=== PATIENT | female | born 1980 ===

== ENCOUNTER 2017-05-13 15:48 | Inpatient (IN) | payer MEDICAID ==
[2017-05-13 16:24] VITALS: BMI 30.7
[2017-05-13] MEDS ORDERED: Lactated Ringer's 1,000 ML IV SCH (16:30)
[2017-05-13] MEDS ORDERED: Penicillin G 5 Million Unit Vial IVPB ONE (16:58)
[2017-05-13] MEDS ORDERED: Lidocaine 1% Inj (20ml) ONE (16:58)
[2017-05-13] MEDS ORDERED: Fentanyl/Bupivacaine HCl 0 ML EPI ONE (17:15)
[2017-05-13 17:21] LABS: BASO # 0.1 K/uL (0.0-0.2); BASO % 0.4 % (0.0-2.0); EOS # 0.1 K/uL (0.0-0.7); EOS % 0.7 % (0.0-4.0); HEMOGLOBIN 14.6 g/dL (12.0-16.0); LYMPH # 2.1 K/uL (1.0-4.3); LYMPH % 16.8 % (20.0-40.0); MEAN CELL VOLUME 91.7 fl (81.0-99.0); MEAN CORPUSCULAR HEMOGLOBIN 30.8 pg (27.0-31.0); MEAN CORPUSCULAR HGB CONC 33.6 g/dL (33.0-37.0); MEAN PLATELET VOLUME 9.8 fl (7.2-11.7); MONO # 0.8 K/uL (0.0-0.8); MONO % 6.1 % (0.0-10.0); NEUT # 9.5 K/uL (1.8-7.0); RBC 4.73 Mil/uL (3.80-5.20); RED CELL DISTRIBUTION WIDTH 13.5 % (11.5-14.5); WHITE BLOOD COUNT 12.5 K/uL (4.8-10.8)
[2017-05-13] MEDS ORDERED: Oxytocin 30 UNITS in Sodium Chloride 0.9% 500 ML IV ONE (17:21)
--- NOTE | 2017-05-13 17:24 | OBHP ---
Datetime: 05/13/2017 16:15 IP Adm Impression: Term, intrauterine ; Intact Membranes IP Admit Plan: Admit to unit; Initiate labor protocol Admit Comment, IP Provider: IUP at 40 acc to pt dates. c/o CTX pain since ealry this aftern oon. No SROM. no VB. +FM...pain is enough for wanting epidural. PNC: [facility] last appt 2w ago. she missed last appt on friday because she couldn't walk (undocumented) PMH: denies PSH: cholecystectomy [facility] denies smoking ETOH drugs - lives with (who accomapnied her) and kids (accompanied by 15yo daughter) POBGYNH: Denies STD; 5 / spont Ab x 1 A: IUP at 40w / early labor ./ painful CTX / grand multiparity PLAN: admit to L_D Discussion about condition, labor, delivery, and pain management Notified by [facility] that she was GBS+ will give PCN Extremities - PN: Normal Abdomen - PN: Normal Back - PN: Normal Lungs - PN: Normal Heart - PN: Normal Thyroid - PN: Normal Neurologic - PN: Normal HEENT - PN: Normal General - PN: Normal Presentation-Admit: Vertex IP Fetus A Comments: sono ceph FHR - Baseline A Provider: 130 Membranes, Provider: Intact Contraction Comments Provider: + Pool Provider: Negative EGA AdmitDate IP: 40.3 IP Chief Complaint: Uterine contractions NICHD Variability Prov Fetus A: Moderate 6-25bpm NICHD Accel Fetus A IP Provider: [id number] FHR Category Provider Fetus A: Category I NICHD Decel Fetus A IP Provider: None Dilatation, Provider: 3-4 Effacement, Provider: 75 Station, Provider: -2 Genitourinary Exam: Normal
[2017-05-13] MEDS: Oxycodone/Acetaminophen 5/325 mg Tab PO PRN (18:24)
--- NOTE | 2017-05-13 18:52 | OBDS ---
DELIVERY PERSONNEL Delivery Doctor: Alfonso Manley DO Agriculturist: /VMLozaRNCMLamelaRNC/W GrimmRN MATERNAL INFORMATION Delivery Anesthesia: None Medications in Delivery: Pitocin 30 units in 0.9NS Estimated Blood Loss (ml): 200 Placenta Cultured: Yes Maternal Complications: None Provider Comments: Over intact perineum, of infant from cephalic presentation. One loose nucha l cord noted and reduced. Infant was crying spontaneously and bulb suctioned nasopharygeally. Infan t was placed on her chest for [id number]. Placenta was deliveed intact spontaneously. EBL 200cc. She remained stable LABOR SUMMARY EDC: 05/10/2017 00:00 No. Babies in Womb: 1 Attempted: No Labor Anesthesia: None LABOR INFORMATION Reason for Induction: Not Applicable Onset of Labor: 05/13/2017 14:00 Complete Dilatation: 05/13/2017 17:45 Oxytocin: N/A Group B Beta Strep: Positive Antibiotics # of Doses: Pen G 5 miiliom units x1 Antibiotics Time of Last Dose: 1700 Steroids Given: None Reason Steroids Not Administered: Not Applicable MEMBRANES Membranes Rupture Method: Spontaneous Rupture of Membranes: 05/13/2017 17:45 Length of Rupture (hrs): 0.07 Amniotic Fluid Color: Clear Amniotic Fluid Amount: Large Amniotic Fluid Odor: Normal STAGES OF LABOR Stage 1 hrs: 3 Stage 1 min: 45 Stage 2 hrs: 0 Stage 2 min: 4 Stage 3 hrs: 0 Stage 3 min: 5 Total Time in Labor hrs: 3 Total Time in Labor min: 54 VAGINAL DELIVERY Episiotomy: None Laceration Extension: N/A Laceration Type: None Laceration Repair: Not Applicable Initial Vag Sponge Count: n/a Final Vag Sponge Count: n/a Initial Vag Sharps Count: n/a Final Vag Sharps Count: n/a Sponge Count Correct: N/A BABY A INFORMATION Infant Delivery Date/Time: 05/13/2017 17:49 Method of Delivery: Vaginal Born in Route : No : N/A Forceps: N/A Vacuum Extraction: N/A Shoulder Dystocia : No SHOULDER DYSTOCIA BABY A Infant Delivery Date/Time: 05/13/2017 17:49 PRESENTATION/POSITION BABY A Presentation: Cephalic Cephalic Presentation: Vertex Breech Presentation: N/A PLACENTA INFORMATION BABY A Placenta Delivery Time : 05/13/2017 17:54 Placenta Method of Delivery: Spontaneous Placenta Status: Delivered SCORES BABY A Heart Rate 1 min: >100 bpm Resp Effort 1 min: Good Cry Reflex Irritability 1 min: Cough or Sneeze or Pulls Away Muscle Tone 1 min: Active Motion Color 1 min: Body [place], Extremities Blue Resuscitation Effort 1 min: Tactile Stimulation SCORE 1 MIN: 9 Heart Rate 5 min: >100 bpm Resp Effort 5 min: Good Cry Reflex Irritability 5 min: Cough or Sneeze or Pulls Away Muscle Tone 5 min: Active Motion Color 5 min: Body [place], Extremities Blue Resuscitation Effort 5 min: N/A SCORE 5 MIN: 9 INFORMATION BABY A Gestational Age at Delivery: 40.3 Gestational Status: Post-term Infant Outcome : Liveborn Condition : Stable Infant Sex: Female IDENTIFICATION/MEDS BABY A ID Band Number: [id number] ID Band Location: Left Leg; Left Arm Vitamin K Given : Not Given Erythromycin Given: Not Given WEIGHT/LENGTH BABY A Infant Birthweight (gms): 3070 Infant Weight (lb): 6 Infant Weight (oz): 12 CORD INFORMATION BABY A No. Cord Vessels: 3 Nuchal Cord : Around Neck x1, Loose Nuchal Cord Other: n/a True Knot: n/a Cord pH Baby Arterial: n/a Infant Cord pH Baby Venous: n/a Cord Blood Taken: Yes Banking/Donate Info: n/a Suction: Mouth; Nose ASSESSMENT BABY A Infant Complications: None Physical Findings at Delivery: Within Normal Limits Respirations: Appears Normal Solar Engineer/ALS Called : No Care By: Pat/Taylor Transferred To: Remains with Mother
[2017-05-13 19:31] VITALS: TEMP 98
[2017-05-13] MEDS ORDERED: Oxycodone/Acetaminophen 5/325 mg Tab PO ONE (20:05)
[2017-05-14] MEDS: Oxycodone/Acetaminophen 5/325 mg Tab PO PRN ×2 (00:10→09:49)
[2017-05-14 06:20] LABS: HEMOGLOBIN 12.3 g/dL (12.0-16.0); MEAN CELL VOLUME 92.8 fl (81.0-99.0); MEAN CORPUSCULAR HEMOGLOBIN 30.7 pg (27.0-31.0); MEAN CORPUSCULAR HGB CONC 33.1 g/dL (33.0-37.0); RED CELL DISTRIBUTION WIDTH 13.4 % (11.5-14.5); WHITE BLOOD COUNT 11.7 K/uL (4.8-10.8)
--- NOTE | 2017-05-14 10:39 | OBPPN ---
Datetime: 05/14/2017 06:30 PP Pain Prov: Within normal limits PP Nausea Prov: Denies PP Flatus Prov: Yes PP BM Prov: Yes PP Breasts Prov: Not Done PP Heart Prov: Normal PP Lungs Prov: Normal PP Abdomen/Uterus Prov: Normal PP Lochia Prov: Normal PP Vulva/Perineum Prov: Not Done PP CVA Tenderness Prov: Not Done PP Extremities Prov: Normal PP C/S Incision Prov: Not Applicable PP Progress Prov: Not Applicable PP Impression Prov: Normal progression PP Plan Prov: Continue present management PP Progress Note Prov: S: 37 yo s/p NVD. Pt. is seen and examined at bedside this morning. N o overnight events. Pt reports occasional abdominal pain, but well controlled with pain meds. Pt is a mbulating without any difficulties. Breast/bottle feeding baby. Tolerating PO diet. Lochia is similar to light menses in volume. Voiding freely, no BM yet but passing gas per rectum. Denies fever/chills , diarrhea, nausea/vomiting, chest pain, dyspnea, and dizziness. O: VS: stable GEN: NAD Cardio: s1s2, no m/r/g Resp: clear breath sounds b/l Abdomen: BS+, NT, Uterus is firm and at the level of the umbilicus. EXT: No edema, calves nontender NEURO/PSYCHI: AAOx3, no grossly focal deficit, preserved affect and mood. A/P: 37 yo s/p NVD. Pt remains afebrile, tolerating pain with medication, doing well on P PD 1. OOB with caution. SCDs for DVT prophylaxis, pt ambulating Ibuprofen 600mg for pain. Colace 100mg PO BID for constipation Encourage . PP CBC: pending Anticipated d/c: 05/15/17 YBecerra PGY1 The patient was seen with the resident I agree with the note. MD Marianela IP PP Procedures: None Vital Signs Provider PP: Reviewed
[2017-05-15 23:37] VITALS: BP 112/66; PULSE 70; RESP 20; O2SAT 100
== END 2017-05-15 19:35 | disposition home or self-care (01) | DRG 373 ==
LOC: H.EROB2 15:48 → H.L&D 16:27 → H.OB/GYN 20:20
PROVIDERS: ADMIT Obstetrics & Gynecology; ATTEND Obstetrics & Gynecology
PROC: 10E0XZZ Delivery of Products of Conception, External Approach (ICD-10-PCS; principal; 2017-05-13)
PROC: 4A1HXCZ Monitoring of Products of Conception, Cardiac Rate, External Approach (ICD-10-PCS; 2017-05-13)
DX: O69.81X0 Labor and delivery complicated by cord around neck, without compression, not applicable or unspecified (principal); K59.00 Constipation, unspecified; Z37.0 Single live birth; O99.824 Streptococcus B carrier state complicating childbirth; Z3A.40 40 weeks gestation of pregnancy